=== PATIENT | male | born 1960 | race Caucasian/White ===

== ENCOUNTER 2020-06-20 09:46 | Outpatient (CLI) | payer OTHER, SELFPAY ==
--- NOTE | 2020-06-20 09:48 | ECG_ITS ---
Measurements Intervals [place] Rate: 74 P: 60 SD: 187 QRS: 28 QRSD: 110 T: 38 QT: 359 QTc: 400 Interpretive Statements SINUS RHYTHM DELAYED PRECORDIAL R/S TRANSITION BORDERLINE ECG Electronically Signed On 06-20-2020 10:15:26 GEODUCK DIVER by Ha Farooq D.O.
== END 2020-06-20 09:47 | disposition home or self-care (01) ==
LOC: ANHSURGERY 09:48
PROVIDERS: PCP Internal Medicine; Visit Provider Orthopaedic Surgery
DX: E11.9 Type 2 diabetes mellitus without complications (principal); E78.00 Pure hypercholesterolemia, unspecified; F17.210 Nicotine dependence, cigarettes, uncomplicated; R94.31 Abnormal electrocardiogram [ECG] [EKG]
CPT/HCPCS: 93005

== ENCOUNTER 2020-06-27 02:30 | Outpatient (CLI) | payer OTHER, SELFPAY ==
[2020-06-27 19:51] LABS: SARS-CoV-2 RNA PCR Negative
== END 2020-06-27 02:31 | disposition home or self-care (01) ==
LOC: ANHCOVIDDT 02:30
PROVIDERS: Visit Provider Orthopaedic Surgery
DX: Z01.812 Encounter for preprocedural laboratory examination (principal); Z20.828 Contact with and (suspected) exposure to other viral communicable diseases
CPT/HCPCS: 87635; C9803; U0003

== ENCOUNTER 2020-06-30 00:27 | Day surgery (SDC) | payer OTHER, SELFPAY ==
[2020-06-16 13:24] VITALS: BMI 29.5
[2020-06-30] VITALS (7 sets, daily range): BP systolic 120–148; BP diastolic 79–89; PULSE 74–95; RESP 11–20; TEMP 36.2–36.3; O2SAT 94–100
--- NOTE | 2020-06-30 07:15 | WPDANESEPPF ---
Anes - Initial Pre Proc Eval Procedure: Operation Date: 06/30/20 09:00 Proposed Procedures p Left Lateral Epicondyle Debridement - Parish Roque MD Date/Time: 06/30/20 07:15 Surgeon: Parish Roque MD Pre Op Diagnosis: Left Lateral Epicondylitis Patient Data Age: 59 Gender: M Height: 1.75 m Weight: 91.8 kg Allergies Allergy/AdvReac Type Severity Reaction Status Date / Time No Known Allergies Allergy Verified 06/30/20 06:49 Home Medications Medication Instructions Recorded Confirmed Type atorvastatin 10 mg tablet 10 mg PO DAILY 07/31/19 06/30/20 History semaglutide 1 mg/dose (2 mg/1.5 0.25 mg SUB-Q WEEKLY 07/31/19 06/30/20 History mL) subcutaneous pen injector coenzyme Q10 [CoQ-10] 100 mg PO DAILY 06/16/20 06/30/20 History flaxseed 1,000 mg PO DAILY 06/16/20 06/30/20 History omega 3-zyd-qve-fish oil [Fish Oil] 2 cap PO DAILY 06/16/20 06/30/20 History Patient hx anesthesia problems: none Family hx anesthesia problems: none PMFSH Past Medical History Medical History (Updated 06/19/20 @ 08:42 by Parish Roque MD) Diabetes a1c 6.21 june 2019 Lateral epicondylitis Left elbow Right shoulder pain Family History Family History Unknown Cancer Social History Social History Smoking packs per day: 1 Smoking cigarettes per day: 20.0 Years smoked: 32 Smoking pack-years: 32.00 Smoking status: Former smoker Smoking end date: 06/16/08 Alcohol intake: current Living arrangements: with family Gender identity (if verbalized by the patient): Male Spiritual care concerns: No Anes - Eval Final PreProcedure Day of Procedure 06/30/20 07:15 Patient weight: overweight Heart: regular rate and rhythm Lungs: clear to auscultation and normal air movement Airway: Mallampati scale class II Neurological: alert and oriented Last oral intake: >/= 8 hours ASA classification: III Emergent: no Anesthetic plan: proceed Anesthesia type and monitoring: general LMA and standard monitoring Informed Consent: The patient's anesthetic plan and its attendant risks and benefits were discussed with the patient/family/POA. Questions were solicited and answers provided to the satisfaction of the patient/family/POA.
[2020-06-30] MEDS: LACTATED RINGERS 1,000 ML 30 ML IV CONT (07:16)
[2020-06-30] MEDS: KETOROLAC 15 MG/ML VIAL (*BKC) IV PUSH (07:17)
[2020-06-30] MEDS: ACETAMINOPHEN 500 MG TABLET 1000 MG PO (07:17)
--- NOTE | 2020-06-30 08:48 | WPDHPUPDATE1 ---
History and Physical Update Update Date/Time: 06/30/20 08:48 History and Physical has been reviewed, including an updated exam of the patient. There are NO changes in the patient's condition. Risks, benefits, and alternatives have been discussed and questions answered. Patient agrees to proceed with procedure.
[2020-06-30] MEDS: ceFAZolin 2 GM/D5W 50 ML 2 GM/50 ML BAG IVPB (09:02)
--- NOTE | 2020-06-30 10:03 | PM.PROC ---
Procedure Note - Detailed Date of procedure: 06/30/20 Pre-op diagnosis: Left Lateral Epicondylitis Post-op diagnosis: same Procedure performed: debride common extensor origin left lateral epicondyle Description of procedure: The patient was identified and proper site identified. He was taken to the operating room and transferred to the or table placing him supine to give her pad is torso and extremities. After general anesthetic induction and intubation, a nonsterile tourniquet was placed high on the left arm which was then prepped and draped in the usual sterile fashion. The subcutaneous tissue over the common extensor origin of the left lateral epicondyle was infiltrated with 3 mL of 0.25% Marcaine and epinephrine solution. The extremity was exsanguinated tourniquet was inflated to 250 mmHg remaining up for 18 minutes. Longitudinal incision was made in line with the tendinous origin. Subcutaneous tissue was bluntly dissected protecting neurovascular structures. Tendinous origin was identified and divided longitudinally in line with the fibers of the tendon as well as released off of the lateral condyle. The amorphous degenerative material within the tendinous origin was debrided back to healthier tendon. The wound was irrigated with sterile antibiotic solution. Tendon edges were reapproximated side to side with four 0 Monocryl suture. The subcu was reapproximated with four Monocryl in the skin with three 0 V lock subcuticular stitch with tissue adhesive. Sterile dressing was applied an Carlos Enrique wrap applied. Tourniquet was released. He tolerated the procedure well. He was awakened, extubated and taken to recovery area in stable condition. There were no known intraoperative complications. Estimated blood loss was negligible. He received perioperative antibiotics. Anesthesia: GETA Surgeon: Parish Roque MD [employer] Supervisor: Isabel Fabian Estimated blood loss (mL): 1 Tourniquet time (min): 18 Drains: No Packing: No Pathology: none sent Complications: No immediate complications Condition: stable Disposition: PACU
[2020-06-30 10:08] LABS: Glucose Point of Care 120 (65-105)
[2020-06-30] MEDS: fentaNYL CITRATE INJ (*CRX) 100 MCG/2 ML VIAL 25 MCG IV PUSH (10:30)
== END 2020-06-30 11:54 | disposition home or self-care (01) ==
PROVIDERS: PCP Internal Medicine; Visit Provider Orthopaedic Surgery
PROC: (CPT 24358; principal; 2020-06-30 09:00)
DX: M77.12 Lateral epicondylitis, left elbow (principal); E11.9 Type 2 diabetes mellitus without complications; Z87.891 Personal history of nicotine dependence
CPT/HCPCS: 24358; A9270; J0330; J0690; J1100; J1885; J2250; J2405; J2704; J2765; J3010; J7120

== ENCOUNTER 2020-08-04 11:00 | Outpatient (RCR) | payer OTHER, SELFPAY ==
--- NOTE | 2020-07-21 11:38 | PTOPEVAL ---
PHYSICAL THERAPY EVALUATION AND PLAN OF CARE Thank you for referring Jonathon Guillaume to [facility].? The patient is scheduled to be seen for therapy? 1x/week for 4-6 weeks. Please review, sign, date and return this plan of care LARY. I agree with and certify that the following plan of care is medically necessary. Referring Physician Date Attending Provider: Parish Roque MD Evaluation Diagnosis right shoulder pain Onset several years Subjective Information pain with elevation out the Query Text:As Reported By Patient/ side; sleeping on right side Family is more painful. Most of the time, he feels pretty good. No numbness or tingling. States that Doctor indicated he may eventually need rotator cuff repair surgery. Self Report Pain Assessment Right Shoulder(s) Reported Pain Level 2 Pain Description Aching Lowest Pain Intensity 0 Greatest Pain Intensity 5 Other Pain Aggravating Factors with movement only Pain Score Pain Score 2: Self Report Interventions Used Interventions Used By Clinicians Mobilization,Manual Therapy Techniques Upper Extremity Range of Motion Scapular/ Shoulder Range of Motion Bilateral Shoulder Flexion - Active 154 Shoulder Abduction - Active 143 Shoulder Medial Rotation - Active L5 Query Text:Reach Behind the Back Shoulder Lateral Rotation - Active T3 Query Text:Reach Behind the Head Upper Extremity Muscle Strength Testing Scapular/Shoulder Bilateral Shoulder Flexion Strength 5 Normal Shoulder Abduction Strength 5 Normal Shoulder Medial Rotation Strength 5 Normal Shoulder Lateral Rotation Strength 5 Normal Shoulder Strength Comments some tenderness to external rotation MMT; poor scapulo- humeral rhythm on right Posture Sitting Position Thoracic Spine Posture Increased Kyphosis Shoulder Posture (L) Rounded,(R) Rounded Palpation Assessment Palpation Palpation generally tight muscles around bilateral shoulders including upper trapezius; trigger points noted to right infraspinatus and teres minor and teres major Manual Therapy Side Right Manual Therapy Location Shoulder Patient Position supine/prone Treatment Comments -medial rotation stretch Query Text:Include Technique and -trigger point release right Result of Technique infraspinatus, teres minor,
--- NOTE | 2020-08-26 14:46 | PCPTNOTE ---
PHYSICAL THERAPY DISCHARGE NOTE Attending Provider: Parish Roque MD Patient:Jonathon Guillaume Date of :1960 Patient has not returned for any further treatments since 08/04/2020, therefore will be discharged at this time. Patient?s initial visit was on 07/21/2020 10:00 and had a total of 3 visits for right shoulder pain. The goals have not been assessed. Thank you for referring this patient to [facility]. Please review, sign, date and return this discharge summary LARY. I have been updated about the patient's current status and I agree with discharge from the above service at this time. Referring Physician Date
== END 2020-08-27 14:02 | disposition home or self-care (01) ==
LOC: ANHPT 11:00
PROVIDERS: Visit Provider Orthopaedic Surgery
DX: M75.81 Other shoulder lesions, right shoulder (principal)
CPT/HCPCS: 97110; 97140; 97161

== ENCOUNTER → 2021-06-18 09:42 | Outpatient (CLI) | payer OTHER, SELFPAY ==
--- NOTE | ~2021-06-18 | CT_ITS ---
EXAMINATION: CT diagnostic chest wo con EXAM DATE: 06/18/2021 09:58 INDICATION: Nicotine dependence, chronic obstructive pulmonary. TECHNIQUE: Spiral CT of the chest without contrast. Axial, coronal and sagittal images of the chest were reviewed. Coronal maximum intensity pixel images of chest reviewed. The dose-length product ( DLP) for this examination was 528.77 mGy-cm. The exposure was tailored according to patient size (au to mA exposure control), and iterative reconstruction (ASIR) was used as additional dose reduction te chnique. There is no prior study for comparison. FINDINGS: Some linear lingular, right middle lobe scarring. There is mild emphysema and moderate hyp erinflation with narrow cardiac silhouette. There are no pleural or pericardial effusions. Tracheo bronchial tree is patent. There is no mediastinal, hilar or axillary lymphadenopathy. There is no pneumothorax. No evidence of coronary arterial calcification. There is left liver lobe medial se gmental hypodensity, a cyst. Upper abdomen is unremarkable. There is thoracic spondylosis without osteoblastic or osteolytic lesions identified. IMPRESSION: 1. Moderate hyperinflation. Mild emphysema. 2. Right middle lobe, lingular subsegmental atelectasis. Reviewed, dictated and finalized at location A.
== END ==
PROVIDERS: PCP Internal Medicine; Visit Provider Internal Medicine
DX: J44.9 Chronic obstructive pulmonary disease, unspecified (principal); Z72.0 Tobacco use; J98.11 Atelectasis
CPT/HCPCS: 71250

== ENCOUNTER → 2022-06-29 15:56 | Outpatient (CLI) | payer OTHER, SELFPAY ==
--- NOTE | ~2022-06-29 | MR_ITS ---
EXAMINATION: MR shoulder RT wo con DATE: 06/29/2022 17:01 INDICATION: Right shoulder pain TECHNIQUE: Magnetic resonance imaging (MRI) of the right shoulder was performed without intravenous c ontrast. Sequences included axial PD-weighted FS FSE, coronal oblique PD-weighted FS FSE, coronal obl ique T2-weighted FS FSE, sagittal PD-weighted FS FSE, and sagittal T1-weighted SE. COMPARISON: Right shoulder radiographs dated 09/29/2021 FINDINGS: Coracoacromial arch: The acromion undersurface is flat in morphology (type I). Small anterior subacromial spur at the acro mial insertion of the normal coracoacromial ligament. Moderate acromioclavicular osteoarthritis with edema-like signal changes process of the joint space and tiny marginal osteophytes which remains sepa rate from the underlying supraspinatus by thin intervening fat plane. Rotator cuff: Mild supraspinatus and infraspinatus tendinopathy. There is a mild partial-thickness intrasubstance t ear without retraction extending along the middle facet footplate of primarily the infraspinatus tend on and involving up to one third of the tendon thickness. Mild subscapularis tendinopathy without tea r. The teres minor tendon is normal. Normal rotator cuff muscle bulk and signal. Biceps tendon, glenoid labrum and glenohumeral cartilage: Long head of the biceps tendon is normal. Linear SLAP tear at the superior glenoid labrum and transit ion to more irregular degenerative tearing at the posterior superior labrum. There is mild degenerati ve labral tear at the inferior labrum. Partial-thickness cartilage loss with mild chondral surface re gularity along the inferomedial aspect of the humeral head and at the posterior superior glenoid. Fluid: Physiologic amount of fluid in the glenohumeral joint and biceps tendon sheath. No loose osteochondr al bodies. No abnormal increased fluid fluid in the subacromial/subdeltoid bursa to suggest bursitis. Bones: Bone alignment is normal. No fracture or pathologic marrow replacing process. IMPRESSION: 1. Mild rotator cuff tendinopathy with small mild intrasubstance tear along the middle facet footplat e of the infraspinatus tendon. 2. Mild glenohumeral osteoarthritis with tears at the superior to posterior superior and at the infer ior glenoid labrum. 3. Moderate acromioclavicular osteoarthritis. Reviewed, dictated and finalized at location B. OGY PHYSICIAN ASSISTANT IMPRESSION: 1. Mild rotator cuff tendinopathy with small mild intrasubstance tear along the middle facet footplate of the infraspinatus tendon. 2. Mild glenohumeral osteoarthritis with tears at the superior to posterior sup erior and at the inferior glenoid labrum. 3. Moderate acromioclavicular osteoarthritis.
== END ==
PROVIDERS: PCP Internal Medicine; Visit Provider Orthopaedic Surgery
DX: M19.011 Primary osteoarthritis, right shoulder (principal)
CPT/HCPCS: 73221

== ENCOUNTER → 2023-04-08 10:55 | Outpatient (CLI) | payer OTHER, SELFPAY ==
--- NOTE | ~2023-04-08 | MR_ITS ---
EXAMINATION: MR hand LT wo con DATE: 04/08/2023 11:08 INDICATION: Pain and weakness in the left third digit. TECHNIQUE: Magnetic resonance imaging (MRI) of the left hand was performed without intravenous contra st to include the metacarpals and digits. Sequences included axial, sagittal and coronal T1-weighted FSE and T2-weighted FS FSE. COMPARISON: Left hand radiographs dated 04/06/2023 FINDINGS: Bone alignment is normal. No fracture or pathologic marrow replacing process. Mild polyarticular oste oarthritis with typical distribution at the radial aspect the carpus and at multiple metacarpophalang eal and interphalangeal joints with distal interphalangeal and first metacarpophalangeal predominance . Tiny focus of subarticular edema-like signal change at the palmar head of the third metacarpal. No erosions to suggest inflammatory arthritis. Physiologic amount fluid in the joint space. The collater al ligament complex the metacarpophalangeal and interphalangeal joints are normal. The visualized por tions of the flexor and extensor tendons are normal with no tenosynovitis. Intrinsic musculature of t he left hand appears normal with no reactive edema or fatty atrophy. IMPRESSION: 1. Typical pattern of mild polyarticular osteoarthritis at the radial aspect of the carpus and at mul tiple metacarpal phalangeal and interphalangeal joints with distal predominance. Reviewed, dictated and finalized at location A. IMPRESSION: 1. Typical pattern of mild polyarticular osteoarthritis at the radial aspect of the carpus and at multiple metacarpal phalangeal and interphalangeal joints wi th distal predominance.
== END ==
PROVIDERS: PCP Internal Medicine; Visit Provider Orthopaedic Surgery
DX: M79.645 Pain in left finger(s) (principal); M15.9 Polyosteoarthritis, unspecified
CPT/HCPCS: 73218

== ENCOUNTER 2023-05-16 09:56 | Outpatient (CLI) | payer OTHER, SELFPAY ==
--- NOTE | 2023-05-16 10:25 | ECG_ITS ---
Measurements Intervals [place] Rate: 68 P: 64 DE: 198 QRS: 29 QRSD: 102 T: 35 QT: 373 QTc: 397 Interpretive Statements SINUS RHYTHM NORMAL ELECTROCARDIOGRAM COMPARED TO ECG 06/20/2020 10:19:56 NO SIGNIFICANT CHANGES Electronically Signed On 05-16-2023 13:38:46 CDT by Chad Davis M.D.
[2023-05-16 11:21] LABS: Anion Gap 8 mmol/L (8-16); Blood Urea Nitrogen 18 mg/dL (9-20); Calcium 8.6 mg/dL (8.4-10.2); Carbon Dioxide 29 mmol/L (22-30); Chloride 102 mmol/L (98-107); Estimated Glomerular Filt Rate > 60; Glucose 165 mg/dL (65-110); Potassium 4.1 mmol/L (3.4-5.0); Sodium 139 mmol/L (137-145)
== END 2023-05-16 09:57 | disposition home or self-care (01) ==
LOC: ANHSURGERY 10:00
PROVIDERS: Anesthesiology; PCP Internal Medicine; Visit Provider Orthopaedic Surgery
DX: Z01.818 Encounter for other preprocedural examination (principal); E11.9 Type 2 diabetes mellitus without complications; F17.210 Nicotine dependence, cigarettes, uncomplicated
CPT/HCPCS: 36415; 80048; 93005

== ENCOUNTER 2023-05-23 00:35 | Day surgery (SDC) | payer OTHER, SELFPAY ==
[2023-05-11 12:59] VITALS: BMI 28.8
--- NOTE | 2023-05-11 13:00 | PC.NURSE ---
Report to the Outpatient Waiting Room, entrance under the green pavilion located off [facility], at time _0830_ on date _[id number]_. Planned Procedure Time: _1030_. Time changes happen often and if your time is changed the preop area will call you the afternoon before. - You and your visitor will be asked to self-screen and do not enter if you have any COVID symptoms. - A mask is optional within the hospital at this time. Patients may have clear liquids (water, carbonated beverages, clear teas, apple juice) until 3 hours prior to surgery with a maximum of 20 ounces. - No food from midnight until time of surgery Take the following medications with a SIP of water the morning of surgery: ___None DO NOT STOP ANY OF YOUR OTHER PRESCRIPTION MEDICATIONS PRIOR TO SURGERY ?EXCEPT THE FOLLOWING Medications to discontinue per physician ____Icosapent ethyl, Co i00 Date to take last loow__[id number] Please no make-up, nail chinese, hairspray, perfume, deodorant, or body powder the day of surgery. No jewelry (including any body piercings) or valuables the day of surgery, leave them at home. Please take a shower or bath the night before, or the morning of, surgery with an antibacterial soap. Wear comfortable, loose fitting clothing. - Jewelry must be removed prior to entering the operating room. Rings and piercings that are not removed may be cut off. - The hospital will not accept responsibility for valuables. - Please leave all valuables, including medications, at home the day of surgery. If you are going home after surgery, a licensed pharmacy delivery driver must drive you home. - NO public transportation without another adult if you receive anesthesia. - We recommend that an adult stay with you for 24 hours following discharge. - We also recommend that you do not drive, make important decision, drink alcoholic beverages, or take any drugs that were not prescribed by your health care provider for at least 24 hours after your discharge time. Follow any additional instructions given to you from your surgeon. If you or anyone in your household have experienced Covid symptoms in the past week, please notify your surgeon or the nurse liaison at the phone number below for possible testing. Telephone instructions given to __Patient__and asked if any additional questions and then verbalized understanding. Patient advised to call surgeon office or pre surgery nurse liaison [phone] if any additional questions.
[2023-05-23] VITALS (8 sets, daily range): BP systolic 110–142; BP diastolic 64–82; PULSE 68–90; RESP 12–20; TEMP 36.2–36.4; O2SAT 93–100
[2023-05-23] MEDS: ACETAMINOPHEN 500 MG TABLET 1000 MG PO (09:00)
[2023-05-23] MEDS: LACTATED RINGERS 1,000 ML 30 ML IV CONT (09:00)
[2023-05-23] MEDS: KETOROLAC 15 MG/ML VIAL (*BKC) IV PUSH (09:00)
[2023-05-23 09:02] LABS: Glucose Point of Care 182 mg/dl (65-105)
--- NOTE | 2023-05-23 09:35 | WPDANESEPPF ---
Anes - Initial Pre Proc Eval Procedure: Operation Date: 05/23/23 10:30 Proposed Procedures p Debridement of Right Elbow Lateral Epicondyle - Parish Roque MD Date/Time: 05/23/23 09:35 Surgeon: Parish Roque MD Pre Op Diagnosis: lateral epicondylitis of right elbow Patient Data Age: 62 Gender: M Height: 1.75 m Weight: 90.4 kg Last Vital Signs Temp 36.4 C L 05/23/23 09:13 Pulse 74 05/23/23 09:13 Resp 14 05/23/23 09:13 BP 121/70 05/23/23 09:13 Pulse Ox 94 05/23/23 09:13 O2 Del Method Room Air 05/23/23 09:13 Allergies Allergy/AdvReac Type Severity Reaction Status Date / Time No Known Allergies Allergy Verified 05/23/23 09:18 Home Medications Medication Instructions Recorded Confirmed Type atorvastatin 10 mg tablet (Lipitor) 10 mg PO DAILY 07/31/19 05/18/23 History semaglutide 1 mg/dose (2 mg/1.5 0.25 mg subcut WEEKLY 07/31/19 05/18/23 History mL) subcutaneous pen injector (Ozempic) coenzyme Q10 100 mg capsule 100 mg PO DAILY 06/16/20 05/18/23 History (CoQ-10) icosapent ethyl 1 gram capsule 2 g PO BID 07/13/22 05/18/23 History trazodone 50 mg tablet 50 mg PO HS 05/11/23 05/18/23 History Laboratory Tests 05/23/23 09:01 POC Capillary Glucose 182 H mg/dl (65-105) Patient hx anesthesia problems: none Family hx anesthesia problems: none Results Review: All pre-operative results and documents have been reviewed as part of the pre-operative evaluation. [facility] Past Medical History Medical History Arthritis of right acromioclavicular joint Diabetes a1c 6.21 june 2019 Right lateral epicondylitis Right rotator cuff tear Right shoulder pain Surgical History Surgical History Lateral epicondylitis Left elbow Lateral epicondylar debridement June 2020 Family History Family History Unknown Cancer Social History Social History Smoking packs per day: 2 Smoking cigarettes per day: 40.0 Years smoked: 30 Smoking pack-years: 60.00 Smoking status: Former smoker Tobacco type: cigarettes Smoking end date: 05/11/08 Alcohol intake: current Drinks per week: 2 Alcohol use details: occasional Substance use type: does not use Current Housing: Decline to Answer Concerned About Future Housing: Decline to Answer Difficulty Paying Gas/Electric Bills: Decline to Answer Difficulty Paying for Meds: Decline to Answer Currently Unemployed: Decline to Answer Education: Decline to Answer Difficulty w/ Childcare or Family Care: Decline to Answer Living arrangements: with family Occupation/Education: retired Gender identity (if verbalized by the patient): Male Spiritual care concerns: No Anes - Eval Final PreProcedure Day of Procedure 05/23/23 09:35 Patient weight: overweight Heart: regular rate and rhythm Lungs: clear to auscultation Airway: Mallampati scale class II Neurological: alert and oriented Last oral intake: >/= 8 hours ASA classification: III Emergent: no Anesthetic plan: proceed Anesthesia type and monitoring: general GIVS and standard monitoring Results Review: All pre-operative results and documents have been reviewed as part of the pre-operative evaluation. Informed Consent: The patient's anesthetic plan and its attendant risks and benefits were discussed with the patient/family/POA. Questions were solicited and answers provided to the satisfaction of the patient/family/POA.
--- NOTE | 2023-05-23 09:40 | WPDHPUPDATE1 ---
History and Physical Update Update Date/Time: 05/23/23 09:40 History and Physical has been reviewed, including an updated exam of the patient. There are NO changes in the patient's condition. Risks, benefits, and alternatives have been discussed and questions answered. Patient agrees to proceed with procedure.
[2023-05-23] MEDS: ceFAZolin 2 GM/D5W 50 ML 2 GM/50 ML BAG IVPB (10:13)
[2023-05-23] MEDS: BUPIVACAINE/EPINEPHRINE 0.5% 50 ML VIAL INFILTRATE (10:43)
[2023-05-23 11:09] LABS: Glucose Point of Care 132 mg/dl (65-105)
--- NOTE | 2023-05-23 11:12 | P.OP_ITS ---
Procedure Note - Detailed Date of Procedure 05/23/23 Pre-op Diagnosis lateral epicondylitis of right elbow Post-op Diagnosis Same Procedure Performed Debridement right lateral epicondyle with partial epicondylectomy Surgeon Parish Roque MD Elementary Teacher Chetna Smith Anesthesia General Description of Procedure The patient was identified in proper side identified. Was taken to the operating room and transferred to the OR table placed him supine taking care to pad his torso and extremities. After general anesthetic induction and intubation a nonsterile tourniquet was placed high in the right arm. Right upper extremity was prepped and draped in the usual sterile fashion. The extremity was exsanguinated and tourniquet inflated to 250 mm Hg remaining up for about 16 minutes. A longitudinal incision was made over the common extensor origin starting at the lateral epicondyle. Subcutaneous tissue was sharply dissected and hemostasis carried out throughout the procedure. The fascia was released from over the lateral epicondyle. The tendon was released off of the spur and lateral portion lateral epicondyle. Care was taken to protect the origin of the LUCL. The degenerative portion of the tendon was scraped out remaining healthy tendon behind. Wound was irrigated sterile saline. Partial epicondylectomy was performed. Tendon edges were reapproximated with 3-0 Monocryl. Surgical site was infiltrated with several cc of 0.5% Marcaine and epinephrine solution. Skin was reapproximated three 0 V lock and Steri-Strips. Sterile dressings applied. Tourniquet was released. Tolerated procedure well. He was awakened, extubated and taken recovery area in stable condition. There were no known intraoperative complications. Estimated blood loss is negligible. Estimated Blood Loss 3 Tourniquet Time 16 Drains No Packing No Pathology None sent Complications No immediate complications Condition Stable Disposition PACU [facility] Billing Surgery - Charge Forward: Surgery Billing ([id number])
[2023-05-23] MEDS: fentaNYL CITRATE INJ (*CRX) 100 MCG/2 ML VIAL 25 MCG IV PUSH ×4 (11:15→11:33)
[2023-05-23] MEDS: oxyCODONE HCL (*CRX) 5 MG TAB IR PO (12:04)
== END 2023-05-23 12:45 | disposition home or self-care (01) ==
PROVIDERS: PCP Internal Medicine; Visit Provider Orthopaedic Surgery
PROC: (CPT 24110; principal; 2023-05-23 10:30)
DX: M77.11 Lateral epicondylitis, right elbow (principal); E11.9 Type 2 diabetes mellitus without complications; Z87.891 Personal history of nicotine dependence; Z79.85 Long-term (current) use of injectable non-insulin antidiabetic drugs; Z80.9 Family history of malignant neoplasm, unspecified
CPT/HCPCS: 24358; 36415; 80048; 82948; 93005; A9270; J0330; J0690; J1100; J1885; J2250; J2405; J2704; J2765; J3010; J7120

== ENCOUNTER 2024-03-18 10:30 | Emergency (ER) | payer OTHER, SELFPAY ==
[2024-03-18] VITALS (8 sets, daily range): BP systolic 134–162; BP diastolic 78–96; PULSE 95–108; RESP 16–24; TEMP 37–37.6; O2SAT 90–93
--- NOTE | ~2024-03-18 | XR_ITS ---
Portable chest x-ray Comparison: None Clinical History: Cough, shortness of breath Findings: Lungs are clear, without focal consolidation or pleural effusion. Cardiomediastinal silho uette is stable. Bones and soft tissues are unremarkable. Impression: Clear lungs. Reviewed, dictated and finalized at location . Impression: Clear lungs.
--- NOTE | 2024-03-18 10:33 | ECG_ITS ---
Test Date: 2024-03-18 10:39:15 Measurements Intervals [place] Rate: 109 P: 79 FL: 154 QRS: 58 QRSD: 97 T: 18 QT: 311 QTc: 419 Interpretive Statements SINUS TACHYCARDIA NONSPECIFIC T-WAVE ABNORMALITY ABNORMAL RHYTHM ECG No previous ECG available for comparison Electronically Signed On 03-19-2024 14:48:52 CDT by Chad Davis M.D.
[2024-03-18 11:14] LABS: Basophils Absolute Auto 0.1 K/mm3 (0.0-0.1); Basophils Percent Auto 0.7 % (0.2-1.2); Eosinophils Absolute Auto 0.3 K/mm3 (0-0.3); Eosinophils Percent Auto 2.8 % (0-4.4); Hematocrit 47.4 % (42.0-52.0); Hemoglobin 16.4 g/dL (14.0-18.0); Immature Granulocyte Absolute 0.05 K/mm3 (0.00-0.031); Immature Granulocyte Percent A 0.5 % (0-0.5); Lymphocytes Absolute Auto 1.31 K/mm3 (0.9-3.2); Lymphocytes Percent Auto 12.4 % (18.3-44.2); Mean Corpuscular HGB Conc 34.6 g/dl (32-36); Mean Corpuscular Hemoglobin 30.4 pg (26-34); Mean Corpuscular Volume 87.8 fl (80-100); Mean Platelet Volume 9.4 fl (7.4-10.4); Monocytes Absolute Auto 0.8 K/mm3 (0.1-0.6); Monocytes Percent Auto 7.3 % (2.6-8.5); Neutrophils Percent Auto 76.3 % (45.5-73.1); Platelet Count Result 315 k/mm3 (150-375); Red Cell Distribution Width 12.6 % (11.5-14.5); White Blood Count 10.5 K/mm3 (4.5-10.0)
[2024-03-18] MEDS: IPRATROPIUM 0.5 MG/ALBUTEROL SULFATE 2.5 MG AMPUL.NEB 3 ML INHALATION (11:19)
[2024-03-18 11:23] LABS: Lactic Acid Reflex 1.3 mmol/L (0.7-2.0)
[2024-03-18 11:24] LABS: Prothrombin Time 13.6 Seconds (11.1-14.7)
[2024-03-18 11:25] LABS: Partial Thromboplastin Time 28.5 Seconds (22.3-36.8)
[2024-03-18 11:27] LABS: Alanine Aminotransferase 33 U/L (6-50); Albumin Level 4.4 g/dL (3.5-5.1); Alkaline Phosphatase 93 U/L (38-126); Anion Gap 12 mmol/L (4-12); Aspartate Amino Transferase 26 U/L (17-59); Bilirubin,Total 1.5 mg/dL (0.2-1.3); Blood Urea Nitrogen 13 mg/dL (9-20); Calcium 8.7 mg/dL (8.4-10.2); Carbon Dioxide 26 mmol/L (22-30); Chloride 98 mmol/L (98-107); Estimated CRCL calculation 96 ml/min; Estimated Glomerular Filt Rate > 60; Glucose 283 mg/dL (65-110); Potassium 3.9 mmol/L (3.4-5.0); Sodium 136 mmol/L (137-145)
[2024-03-18 11:41] LABS: CRP 14.6 mg/dL (<1.0)
[2024-03-18 11:49] LABS: SARS-CoV-2 RNA PCR Positive (Negative)
[2024-03-18] MEDS: ACETAMINOPHEN 325 MG TABLET 650 MG PO (11:51)
[2024-03-18 11:59] LABS: Hemoglobin A1C 9.3 % (<5.7)
--- NOTE | 2024-03-18 13:55 | ED.SOB ---
HPI - SOB/Dyspnea General Chief Complaint: Shortness of Breath/Dyspnea Stated Complaint: SOB Time Seen by Provider: 03/18/24 10:51 History of Present Illness HPI Narrative: Patient is a 63-year-old male who presents ER with cough and fever and shortness of breath. Ongoing for last 5 days. Started after ER he got off a plane from [place]. Has sinus congestion with productive cough. No chest pain. No nausea or vomiting. Patient is diabetic but did not take his medication today. Related Data Home Medications Medication Instructions Recorded Confirmed atorvastatin 10 mg tablet (Lipitor) 10 mg PO DAILY 07/31/19 07/05/23 semaglutide 1 mg/dose (2 mg/1.5 0.25 mg subcut WEEKLY 07/31/19 07/05/23 mL) subcutaneous pen injector (Ozempic) coenzyme Q10 100 mg capsule 100 mg PO DAILY 06/16/20 07/05/23 (CoQ-10) icosapent ethyl 1 gram capsule 2 g PO BID 07/13/22 07/05/23 trazodone 50 mg tablet 50 mg PO HS 05/11/23 07/05/23 Allergies Allergy/AdvReac Type Severity Reaction Status Date / Time No Known Allergies Allergy Verified 03/18/24 10:32 Review of Systems Review of Systems: All systems reviewed & are unremarkable except as noted in HPI and below Constitutional: Constitutional: Reports chills, Reports fatigue and Reports fever(s) ENT: Reports nasal congestion and Reports sore throat Cardiovascular: Cardiovascular: Reports no additional cardiovascular complaints Respiratory: Respiratory: Reports cough, Reports dyspnea and Denies wheezing Gastrointestinal: Gastrointestinal: Reports no additional gastrointestinal complaints PMFSH Past Medical History Medical History Arthritis of right acromioclavicular joint Diabetes a1c 6.21 june 2019 Right rotator cuff tear Right shoulder pain Surgical History Surgical History Lateral epicondylitis Left elbow Lateral epicondylar debridement June 2020 Right lateral epicondylitis Right lateral epicondylar debridement May 23, 2023 Family History Family History Unknown Cancer Social History Social History Smoking packs per day: 2 Smoking cigarettes per day: 40.0 Years smoked: 30 Smoking pack-years: 60.00 Smoking status: Former smoker Tobacco type: cigarettes Smoking end date: 05/11/08 Alcohol intake: current Drinks per week: 2 Alcohol use details: occasional Substance use type: does not use Current Housing: Decline to Answer Concerned About Future Housing: Decline to Answer Difficulty Paying Gas/Electric Bills: Decline to Answer Difficulty Paying for Meds: Decline to Answer Currently Unemployed: Decline to Answer Education: Decline to Answer Difficulty w/ Childcare or Family Care: Decline to Answer Living arrangements: with family Occupation/Education: retired Gender identity (if verbalized by the patient): Male Spiritual care concerns: No Exam Narrative: GENERAL: Well-appearing, well-nourished, and in no acute distress. HEAD: Normocephalic, atraumatic. ENT: Mucous membranes moist. CHEST: Clear to auscultation. No respiratory distress. Frequent coughing. HEART: Regular rate and rhythm. Normal peripheral pulses. ABDOMEN: Soft, nontender, nondistended. EXTREMITIES: Normal range of motion. No edema. SKIN: Warm, dry, no rash. NEURO: Alert and oriented x3. PSYCH: Normal mood and affect. Course Course Emergency Course: Patient has COVID. Pulse oximetry reading his never dropped into the 80s. He is ambulatory without hypoxia. He will be given nebulizer solution at his request and they will purchase a [id number] nebulizer. Additionally they requested packs of id which will be provided as well. Discussed significant cost with limited benefit. Vital Signs Vital signs: V
== END 2024-03-18 14:21 | disposition home or self-care (01) ==
PROVIDERS: Emergency Provider Emergency Medicine; PCP Internal Medicine
DX: U07.1 COVID-19 (principal); E11.9 Type 2 diabetes mellitus without complications; M19.011 Primary osteoarthritis, right shoulder; Z87.891 Personal history of nicotine dependence; Z79.899 Other long term (current) drug therapy; Z79.85 Long-term (current) use of injectable non-insulin antidiabetic drugs
CPT/HCPCS: 36415; 71045; 80053; 83036; 83605; 85025; 85610; 85730; 86140; 87040; 87635; 93005; 94640; 99284; A9270